=== PATIENT | male | born 1990 | race African-American/Black ===

== ENCOUNTER 2016-04-20 08:51 | Emergency (ER) | payer OTHER ==
[2016-04-20] MEDS ORDERED: TETRACAINE 0.5% OPHTH SOLN 4ML As Ordered ONE (09:10)
[2016-04-20] MEDS ORDERED: IRRIGATION OPHTH SOLN (EYE WASH) 120ML As Ordered ONE (09:11)
[2016-04-20] MEDS ORDERED: FLUORESCEIN OPHTH 1 MG STRIP As Ordered ONE (09:18)
--- NOTE | 2016-04-20 10:19 | EDDOCDS ---
Physician Documentation [facility] Name: Meliton Mari Age: 26 yrs Sex: Male : 1990 Arrival Date: 04/20/2016 Time: 08:51 Bed I10 / 23 Private MD: Johana Carranza [facility] Disposition: 04/20/16 10:01 Discharged to Home/Self Care. Impression: Conjunctivitis - bilateral, chemical exposure to bleach. pH 7, Injury of conjunctiva and corneal abrasion without foreign body - bilateral. - Condition is Stable. - Discharge Instructions: Conjunctivitis, Chemical, Corneal Abrasion. - Prescriptions for TobraDex 0.3- 0.1 % Ophthalmic drops,suspension - instill 1 drop by OPHTHALMIC route 4 times per day for 7 days; 1 bottle. - Medication Reconciliation, Local Pharmacy Hours form. - Follow up: Johana Carranza [facility]; When: 1 - 2 days; Reason: Recheck today's complaints, Continuance of care. Follow up: Adrián Feldman; When: As needed; Reason: Recheck today's complaints. - Problem is new. - Symptoms are unchanged. 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 to follow up with pharmacist critical care on post or Dr. Vikas Gallego this week for recheck Historical: - Allergies: no known allergies; - Home Meds: 1. none - PMHx: none; - PSHx: none; - Social history: Smoking status: Patient states was never smoker of tobacco. No barriers to communication noted, The patient speaks fluent Setswana, Speaks appropriately for age. - Family history: Not pertinent. - : The pt / caregiver states he / she is not on anticoagulants. Home medication list is obtained from the patient. - Exposure Risk Screening:: None identified. Vital Signs: 04/20 08:56 BP 130 / 79; Pulse 71; Resp 18; Temp 98.4; Pulse Ox 99% ; Weight 79.38 kg / 175 lbs; jam1 Height 5 ft. 8 in. (172.72 cm); Pain 7/10; 10:10 BP 126 / 74; Pulse 65; Resp 18; Temp 97.9; Pulse Ox 100% ; Pain 6/10; jam1 08:56 Body Mass Index 26.61 (79.38 kg, 172.72 cm) jam1 Visual Acuity: 09:00 Left Eye Visual acuity 20/30, ; Right Eye Visual acuity 20/40, ; Both Eyes Visual srm acuity 20/25; Without Lenses; MDM: 09:02 Visual Acuity ordered. ar2 09:02 Tetracaine (PF) Drops 0.5 % 2 drps Ophthalmic once ordered. ar2 09:02 Eye Wash Drops 1 applic Ophthalmic bolus ordered. ar2 09:18 Fluorescein Strip 1 strips Ophthalmic once ordered. ar2 09:33 Financial registration complete. :58 [facility] Payment Agreement was scanned into [employer] and attached to record. lg Administered Medications: 09:10 Drug: Tetracaine (PF) 2 drps [tetracaine HCl (PF) 0.5 % eye drops (2 drps)] {Note: kpj administered by A Yvon YIN} Route: Ophthalmic; Site: both eyes; 09:10 Drug: Eye Wash Drops 1 applic {Note: administered by A Yvon YIN} Route: kpj Ophthalmic; Site: both eyes; 09:10 Drug: Fluorescein 1 strips [fluorescein 1 mg eye strips (1 strips)] {Note: administered kpj by Andrew YIN} Route: Ophthalmic; Site: both eyes; Signatures: Sophy Ramirez RN RN kpj Michelson, Staci, RN RN srm Ganter, LoriLee, Jhonatan Kwong lg, PA-C PA-C ar2 The chart was reviewed and I authenticate all verbal orders and agree with the evaluation and treatment provided.Attachments: :58 [facility] Payment Agreement lg MTDD
--- NOTE | 2016-04-20 10:19 | EDDOCDS ---
Nurse's Notes [facility] Name: Meliton Mari Age: 26 yrs Sex: Male : 1990 Arrival Date: 04/20/2016 Time: 08:51 Bed I10 / 23 Private MD: Johana Carranza [facility] Diagnosis: Conjunctivitis-bilateral, chemical exposure to bleach. pH 7;Injury of conjunctiva and corneal abrasion without foreign body-bilateral Presentation: 04/20 08:54 Presenting complaint: EMS states: bleach in both eyes. occurred last night. irrigated srm at that time. went to med station and irrigated with 600 cc NS> vision blurry. was reaching for bleach on a high shelf and it spilled onto face. Adult Sepsis Screening: The patient does not have new or worsening altered mentation. Patient's respiratory rate is less than 22. Systolic blood pressure is greater than 100. Patient has a qSOFA score of 0- Negative Sepsis Screen. Suicide/Homicide risk assessment- the patient denies having any suicidal and/or homicidal ideations and does not present with any other emotional, behavioral or mental health complaints. 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 Transition of care: patient was not received from another setting of care. 08:54 Acuity: CAROLYNE Level 4 srm 08:54 Method Of Arrival: Ambulance srm 08:56 Presenting complaint: Patient states: states some got in his mouth but then he threw up.srm Triage Assessment: 08:56 General: Appears in no apparent distress, Behavior is appropriate for age, cooperative. srm Pain: Pain currently is 7 out of 10 on a pain scale. 08:59 EENT: left upper eye lid appears swollen. Reports left eye hurts more than right. srm 10:17 Pt Declines HIV testing. [facility] Historical: - Allergies: no known allergies; - Home Meds: 1. none - PMHx: none; - PSHx: none; - Social history: Smoking status: Patient states was never smoker of tobacco. No barriers to communication noted, The patient speaks fluent Kinyarwanda, Speaks appropriately for age. - Family history: Not pertinent. - : The pt / caregiver states he / she is not on anticoagulants. Home medication list is obtained from the patient. - Exposure Risk Screening:: None identified. Screenin:11 Screening information is obtained from the patient. Primary language is Kinyarwanda. Fall jam1 risk: No risks identified. Assistance ADL's: requires no assistance with activities of daily living. Abuse/DV Screen: The patient / caregiver reports he/she is: not in a situation that causes fear, pain or injury. Nutritional screening: No deficits noted. Exposure Risk Screening: None identified. Advance Directives: Currently, there is no health care proxy. There is no active DNR order. There is no living will. There is no Power of Director Life. Advance directive information has not previously been placed in an [facility] medical record. Further advance directive information is declined. home support is adequate. Assessment: 09:05 EENT: Sclera/Cornea pink. srm 10:14 General: Appears in no apparent distress, well nourished, well groomed, Behavior is kp appropriate for age, pleasant. Pain: Location: right eye and left eye Pain currently is 7 out of 10 on a pain scale. Neurological: Level of Consciousness is awake, alert, Oriented to person, place, time. EENT: Sclera/Cornea are reddened in outer aspect of conjuctiva of right eye, inner aspect of conjuctiva of right eye, outer aspect of conjuctiva of left eye and inner aspect of conjunctiva of left eye left eye worse than right. Reports pain in right eye and left eye Pain is 7 out of 10 on a pain scale. Respiratory: Airway is patent Respiratory effort is even, unlabored, Respiratory pattern is regular, symmetrical. Derm: Skin is pink, warm & dry. 10:14 EENT: Denies blurred vision. [facility] Vital Signs: 08:56 BP 130 / 79; Pulse 71; Resp 18; Temp 98.4; Pulse Ox 99% ; Weight 79.38 kg; Height 5 ft. jam1 8 in. (172.72 cm); Pain 7/10; 10:10 BP 126 / 74; Pulse 65; Resp 18; Temp 97.9; Pulse Ox 100% ; Pain 6/10; jam1 08:56 Body Mass Index 26.61 (79.38 kg, 172.72 cm) [facility] Vitals: 09:00 Log In Time N/A - ambulance arrival. srm Visual Acuity: 09:00 Left Eye Visual acuity 20/30, ; Right Eye Visual acuity 20/40, ; Both Eyes Visual srm acuity 20/25; Without Lenses; ED Course: 08:52 Patient visited by Nancy Santana, Special Population Paraprofessional. lbd 08:52 Patient moved to Waiting lbd 08:53 [facility] is Private Physician. lbd 08:53 Patient moved to I10 / 23 kr3 08:56 Triage Initiated srm 09:00 Jhonatan Sanz PA-C is PHCP. ar2 09:00 Cesar Burgess MD is Attending Physician. ar2 09:00 Patient visited by Jhonatan Sanz PA-C. ar2 09:00 Patient visited by Jeni Coleman, YARITZA. srm 09:02 Pt greeted and oriented to ED. Patient advised of names of staff involved in care, jam1 location of call early, wait times and NPO status. Patient has correct armband on for positive identification. Call light in reach. Door closed. 09:20 Poison Control notified at 09:21 recommendations reviewed with do optho exam with srm fluorescence strip. normal pH 7-7.5. consult optho . 09:21 Patient visited by Jeni Coleman RN. srm 09:54 Patient name changed from Meliton\S\\S\[place]\S\ to Meliton\S\ \S\[place]. EDMS 09:58 [place] is Referral Physician. ar2 09:58 Adrián Feldman is Referral Physician. ar2 09:58 [facility] Payment Agreement was scanned into [employer] and attached to record. lg 10:14 No apparent distress. kpj 10:14 The patient / caregiver is instructed regarding the plan of care and ED course. kpj 10:14 No IV's were initiated during this patient's visit. No procedures done that require kpj assistance. Administered Medications: 09:10 Drug: Tetracaine (PF) 2 drps [tetracaine HCl (PF) 0.5 % eye drops (2 drps)] {Note: kpj administered by A Yvon YIN} Route: Ophthalmic; Site: both eyes; 09:10 Drug: Eye Wash Drops 1 applic {Note: administered by Yobany YIN} Route: kpj Ophthalmic; Site: both eyes; 09:10 Drug: Fluorescein 1 strips [fluorescein 1 mg eye strips (1 strips)] {Note: administered kpj by Andrew YIN} Route: Ophthalmic; Site: both eyes; Order Results: There are currently no results for this order. Outcome: 10:01 Discharge ordered by Provider. ar2 10:14 Discharge Assessment: Patient awake, alert and oriented x 3. No cognitive and/or kpj functional deficits noted. Patient verbalized understanding of disposition instructions. patient administered narcotics - no. The following High Risk Discharge criteria are identified: None. Discharged to home ambulatory. Condition: stable. Discharge instructions given to patient, Instructed on discharge instructions, follow up and referral plans. medication usage, Use of warm compresses to the affected area, Demonstrated understanding of instructions, medications, Pt was receptive of discharge instructions/ teaching. Prescriptions given X 1. No special radiology studies were completed. Property sent home with patient. 10:17 Patient left the ED. [facility] Signatures: Dispatcher [employer] EDMS Nancy Santana, Special Population Paraprofessional Unit lbd Sophy Ramirez RN RN kpj Michelson, Staci RN RN Lorna Quigley, PRN PHYSICAL THERAPIST PRN PHYSICAL THERAPIST jam1 Matilda Watters, Faye Yi lgRN RN kr3 Jhonatan Sanz, PA-Miguelina PA-C ar2 NIELS
--- NOTE | 2016-04-22 11:19 | EDDOCDS ---
Physician Documentation [facility] Name: Meliton Mari Age: 26 yrs Sex: Male : 1990 Arrival Date: 04/20/2016 Time: 08:51 Bed I10 / 23 Private MD: Johana Carranza [facility] Disposition: 04/20/16 10:01 Discharged to Home/Self Care. Impression: Conjunctivitis - bilateral, chemical exposure to bleach. pH 7, Injury of conjunctiva and corneal abrasion without foreign body - bilateral. - Condition is Stable. - Discharge Instructions: Conjunctivitis, Chemical, Corneal Abrasion. - Prescriptions for TobraDex 0.3- 0.1 % Ophthalmic drops,suspension - instill 1 drop by OPHTHALMIC route 4 times per day for 7 days; 1 bottle. - Medication Reconciliation, Local Pharmacy Hours form. - Follow up: Johana Carranza [facility]; When: 1 - 2 days; Reason: Recheck today's complaints, Continuance of care. Follow up: Adrián Feldman; When: As needed; Reason: Recheck today's complaints. - Problem is new. - Symptoms are unchanged. 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 Vikas Gallego this week for recheck Historical: - Allergies: no known allergies; - Home Meds: 1. none - PMHx: none; - PSHx: none; - Social history: Smoking status: Patient states was never smoker of tobacco. No barriers to communication noted, The patient speaks fluent Slovak, Speaks appropriately for age. - Family history: Not pertinent. - : The pt / caregiver states he / she is not on anticoagulants. Home medication list is obtained from the patient. - Exposure Risk Screening:: None identified. Vital Signs: 04/20 08:56 BP 130 / 79; Pulse 71; Resp 18; Temp 98.4; Pulse Ox 99% ; Weight 79.38 kg / 175 lbs; jam1 Height 5 ft. 8 in. (172.72 cm); Pain 7/10; 10:10 BP 126 / 74; Pulse 65; Resp 18; Temp 97.9; Pulse Ox 100% ; Pain 6/10; jam1 08:56 Body Mass Index 26.61 (79.38 kg, 172.72 cm) jam1 Visual Acuity: 09:00 Left Eye Visual acuity 20/30, ; Right Eye Visual acuity 20/40, ; Both Eyes Visual srm acuity 20/25; Without Lenses; MDM: 09:02 Visual Acuity ordered. ar2 09:02 Tetracaine (PF) Drops 0.5 % 2 drps Ophthalmic once ordered. ar2 09:02 Eye Wash Drops 1 applic Ophthalmic bolus ordered. ar2 09:18 Fluorescein Strip 1 strips Ophthalmic once ordered. ar2 09:33 Financial registration complete. lg :58 [facility] Payment Agreement was scanned into [employer] and attached to record. lg 04/21 10:57 T-Sheet-- Draft Copy was scanned into [employer] and attached to record. gb 11:24 PCR was scanned into [employer] and attached to record. gb Administered Medications: 04/20 09:10 Drug: Tetracaine (PF) 2 drps [tetracaine HCl (PF) 0.5 % eye drops (2 drps)] {Note: kpj administered by A Yvon YIN} Route: Ophthalmic; Site: both eyes; 09:10 Drug: Eye Wash Drops 1 applic {Note: administered by A Yvon YIN} Route: kpj Ophthalmic; Site: both eyes; 09:10 Drug: Fluorescein 1 strips [fluorescein 1 mg eye strips (1 strips)] {Note: administered kpj by Andrew YIN} Route: Ophthalmic; Site: both eyes; Signatures: Sophy Ramirez RN RN kpj Michelson, Staci, RN RN [facility] Denia Carter, Reg Reg Matilda Watters, Reg Reg Jhonatan Sanz PA-C PA-C ar2 The chart was reviewed and I authenticate all verbal orders and agree with the evaluation and treatment provided.Attachments: :58 [facility] Payment Agreement lg 04/21 10:57 T-Sheet-- Draft Copy gb Chart Complete MTDD
--- NOTE | 2016-04-22 11:19 | EDDOCDS ---
Nurse's Notes [facility] Name: Meliton Mari Age: 26 yrs Sex: Male : 1990 Arrival Date: 04/20/2016 Time: 08:51 Bed I10 / 23 Private MD: Johana Carranza [facility] Diagnosis: Conjunctivitis-bilateral, chemical exposure to bleach. pH 7;Injury of conjunctiva and corneal abrasion without foreign body-bilateral Presentation: 04/20 08:54 Presenting complaint: EMS states: bleach in both eyes. occurred last night. irrigated srm at that time. went to med station and irrigated with 600 cc NS> vision blurry. was reaching for bleach on a high shelf and it spilled onto face. Adult Sepsis Screening: The patient does not have new or worsening altered mentation. Patient's respiratory rate is less than 22. Systolic blood pressure is greater than 100. Patient has a qSOFA score of 0- Negative Sepsis Screen. Suicide/Homicide risk assessment- the patient denies having any suicidal and/or homicidal ideations and does not present with any other emotional, behavioral or mental health complaints. 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 Transition of care: patient was not received from another setting of care. 08:54 Acuity: CAROLYNE Level 4 srm 08:54 Method Of Arrival: Ambulance srm 08:56 Presenting complaint: Patient states: states some got in his mouth but then he threw up.srm Triage Assessment: 08:56 General: Appears in no apparent distress, Behavior is appropriate for age, cooperative. srm Pain: Pain currently is 7 out of 10 on a pain scale. 08:59 EENT: left upper eye lid appears swollen. Reports left eye hurts more than right. srm 10:17 Pt Declines HIV testing. [facility] Historical: - Allergies: no known allergies; - Home Meds: 1. none - PMHx: none; - PSHx: none; - Social history: Smoking status: Patient states was never smoker of tobacco. No barriers to communication noted, The patient speaks fluent Maori, Speaks appropriately for age. - Family history: Not pertinent. - : The pt / caregiver states he / she is not on anticoagulants. Home medication list is obtained from the patient. - Exposure Risk Screening:: None identified. Screenin:11 Screening information is obtained from the patient. Primary language is Maori. Fall jam1 risk: No risks identified. Assistance ADL's: requires no assistance with activities of daily living. Abuse/DV Screen: The patient / caregiver reports he/she is: not in a situation that causes fear, pain or injury. Nutritional screening: No deficits noted. Exposure Risk Screening: None identified. Advance Directives: Currently, there is no health care proxy. There is no active DNR order. There is no living will. There is no Power of Painter Plate. Advance directive information has not previously been placed in an [facility] medical record. Further advance directive information is declined. home support is adequate. Assessment: 09:05 EENT: Sclera/Cornea pink. srm 10:14 General: Appears in no apparent distress, well nourished, well groomed, Behavior is kp appropriate for age, pleasant. Pain: Location: right eye and left eye Pain currently is 7 out of 10 on a pain scale. Neurological: Level of Consciousness is awake, alert, Oriented to person, place, time. EENT: Sclera/Cornea are reddened in outer aspect of conjuctiva of right eye, inner aspect of conjuctiva of right eye, outer aspect of conjuctiva of left eye and inner aspect of conjunctiva of left eye left eye worse than right. Reports pain in right eye and left eye Pain is 7 out of 10 on a pain scale. Respiratory: Airway is patent Respiratory effort is even, unlabored, Respiratory pattern is regular, symmetrical. Derm: Skin is pink, warm & dry. 10:14 EENT: Denies blurred vision. [facility] Vital Signs: 08:56 BP 130 / 79; Pulse 71; Resp 18; Temp 98.4; Pulse Ox 99% ; Weight 79.38 kg; Height 5 ft. jam1 8 in. (172.72 cm); Pain 7/10; 10:10 BP 126 / 74; Pulse 65; Resp 18; Temp 97.9; Pulse Ox 100% ; Pain 6/10; jam1 08:56 Body Mass Index 26.61 (79.38 kg, 172.72 cm) [facility] Vitals: 09:00 Log In Time N/A - ambulance arrival. srm Visual Acuity: 09:00 Left Eye Visual acuity 20/30, ; Right Eye Visual acuity 20/40, ; Both Eyes Visual srm acuity 20/25; Without Lenses; ED Course: 08:52 Patient visited by Nancy Santana, Motor Vehicle Clerk. lbd 08:52 Patient moved to Waiting lbd 08:53 [facility] is Private Physician. lbd 08:53 Patient moved to I10 / 23 kr3 08:56 Triage Initiated srm 09:00 Jhonatan Sanz PA-C is PHCP. ar2 09:00 Cesar Burgess MD is Attending Physician. ar2 09:00 Patient visited by Jhonatan Sanz PA-C. ar2 09:00 Patient visited by Jeni Coleman, YARITZA. srm 09:02 Pt greeted and oriented to ED. Patient advised of names of staff involved in care, jam1 location of call early, wait times and NPO status. Patient has correct armband on for positive identification. Call light in reach. Door closed. 09:20 Poison Control notified at 09:21 recommendations reviewed with do optho exam with srm fluorescence strip. normal pH 7-7.5. consult optho . 09:21 Patient visited by Jeni Coleman RN. srm 09:54 Patient name changed from Meliton\S\\S\[place]\S\ to Meliton\S\ \S\[place]. EDMS 09:58 [place] is Referral Physician. ar2 09:58 Adrián Feldman is Referral Physician. ar2 09:58 [facility] Payment Agreement was scanned into [employer] and attached to record. lg 10:14 No apparent distress. kpj 10:14 The patient / caregiver is instructed regarding the plan of care and ED course. kpj 10:14 No IV's were initiated during this patient's visit. No procedures done that require kpj assistance. 04/21 10:57 T-Sheet-- Draft Copy was scanned into [employer] and attached to record. gb 11:24 PCR was scanned into [employer] and attached to record. gb Administered Medications: 04/20 09:10 Drug: Tetracaine (PF) 2 drps [tetracaine HCl (PF) 0.5 % eye drops (2 drps)] {Note: kpj administered by A Yvon YIN} Route: Ophthalmic; Site: both eyes; 09:10 Drug: Eye Wash Drops 1 applic {Note: administered by A Yvon YIN} Route: kpj Ophthalmic; Site: both eyes; 09:10 Drug: Fluorescein 1 strips [fluorescein 1 mg eye strips (1 strips)] {Note: administered [facility] by Andrew YIN} Route: Ophthalmic; Site: both eyes; Order Results: There are currently no results for this order. Outcome: 10:01 Discharge ordered by Provider. ar2 10:14 Discharge Assessment: Patient awake, alert and oriented x 3. No cognitive and/or kpj functional deficits noted. Patient verbalized understanding of disposition instructions. patient administered narcotics - no. The following High Risk Discharge criteria are identified: None. Discharged to home ambulatory. Condition: stable. Discharge instructions given to patient, Instructed on discharge instructions, follow up and referral plans. medication usage, Use of warm compresses to the affected area, Demonstrated understanding of instructions, medications, Pt was receptive of discharge instructions/ teaching. Prescriptions given X 1. No special radiology studies were completed. Property sent home with patient. 10:17 Patient left the ED. [facility] Signatures: Dispatcher [employer] EDMS Nancy Santana, Motor Vehicle Clerk Unit lbd Sophy Ramirez RN RN [facility] Jeni Coleman, RN RN Lorna Quigley, CUTTER APPRENTICE HAND CUTTER APPRENTICE HAND jam1 Denia Carter, Reg Reg gb Matilda Watters, Reg Reg lg Faye FranzRN RN kr3 Jhonatan Sanz PA-C PA-C ar2 Chart Complete MTDD
--- NOTE | 2016-04-22 11:19 | EDDOCDS ---
Physician Documentation [facility] Name: Meliton Mari Age: 26 yrs Sex: Male : 1990 Arrival Date: 04/20/2016 Time: 08:51 Bed I10 / 23 Private MD: Johana Carranza [facility] Disposition: 04/20/16 10:01 Discharged to Home/Self Care. Impression: Conjunctivitis - bilateral, chemical exposure to bleach. pH 7, Injury of conjunctiva and corneal abrasion without foreign body - bilateral. - Condition is Stable. - Discharge Instructions: Conjunctivitis, Chemical, Corneal Abrasion. - Prescriptions for TobraDex 0.3- 0.1 % Ophthalmic drops,suspension - instill 1 drop by OPHTHALMIC route 4 times per day for 7 days; 1 bottle. - Medication Reconciliation, Local Pharmacy Hours form. - Follow up: Johana Carranza [facility]; When: 1 - 2 days; Reason: Recheck today's complaints, Continuance of care. Follow up: Adrián Feldman; When: As needed; Reason: Recheck today's complaints. - Problem is new. - Symptoms are unchanged. 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 Vikas Gallego this week for recheck Historical: - Allergies: no known allergies; - Home Meds: 1. none - PMHx: none; - PSHx: none; - Social history: Smoking status: Patient states was never smoker of tobacco. No barriers to communication noted, The patient speaks fluent Nepali, Speaks appropriately for age. - Family history: Not pertinent. - : The pt / caregiver states he / she is not on anticoagulants. Home medication list is obtained from the patient. - Exposure Risk Screening:: None identified. Vital Signs: 04/20 08:56 BP 130 / 79; Pulse 71; Resp 18; Temp 98.4; Pulse Ox 99% ; Weight 79.38 kg / 175 lbs; jam1 Height 5 ft. 8 in. (172.72 cm); Pain 7/10; 10:10 BP 126 / 74; Pulse 65; Resp 18; Temp 97.9; Pulse Ox 100% ; Pain 6/10; jam1 08:56 Body Mass Index 26.61 (79.38 kg, 172.72 cm) jam1 Visual Acuity: 09:00 Left Eye Visual acuity 20/30, ; Right Eye Visual acuity 20/40, ; Both Eyes Visual srm acuity 20/25; Without Lenses; MDM: 09:02 Visual Acuity ordered. ar2 09:02 Tetracaine (PF) Drops 0.5 % 2 drps Ophthalmic once ordered. ar2 09:02 Eye Wash Drops 1 applic Ophthalmic bolus ordered. ar2 09:18 Fluorescein Strip 1 strips Ophthalmic once ordered. ar2 09:33 Financial registration complete. lg :58 [facility] Payment Agreement was scanned into [facility] and attached to record. lg 04/21 10:57 T-Sheet-- Draft Copy was scanned into [facility] and attached to record. gb 11:24 PCR was scanned into [facility] and attached to record. gb Administered Medications: 04/20 09:10 Drug: Tetracaine (PF) 2 drps [tetracaine HCl (PF) 0.5 % eye drops (2 drps)] {Note: kpj administered by A Yvon YIN} Route: Ophthalmic; Site: both eyes; 09:10 Drug: Eye Wash Drops 1 applic {Note: administered by A Yvon YIN} Route: kpj Ophthalmic; Site: both eyes; 09:10 Drug: Fluorescein 1 strips [fluorescein 1 mg eye strips (1 strips)] {Note: administered kpj by Andrew YIN} Route: Ophthalmic; Site: both eyes; Signatures: Sophy Ramirez RN RN kpj Michelson, Staci, RN RN [facility] Denia Carter, Reg Reg Matilda Watters, Reg Reg Jhonatan Sanz PA-C PA-C ar2 The chart was reviewed and I authenticate all verbal orders and agree with the evaluation and treatment provided.Attachments: :58 [facility] Payment Agreement lg 04/21 10:57 T-Sheet-- Draft Copy gb Chart Complete MTDD
== END 2016-04-20 10:17 | disposition home or self-care (01) ==
LOC: M ED 08:51
DX: T54.91XA Toxic effect of unspecified corrosive substance, accidental (unintentional), initial encounter (principal); T26.61XA Corrosion of cornea and conjunctival sac, right eye, initial encounter; T26.62XA Corrosion of cornea and conjunctival sac, left eye, initial encounter; Y92.89 Other specified places as the place of occurrence of the external cause